=== PATIENT | female | born 1980 | race Caucasian/White ===

== ENCOUNTER 2017-09-30 17:47 | Emergency (ER) | payer SELFPAY ==
[~2017-09-30] VITALS: Ht 162.6 cm; Wt 69.4 kg
[2017-09-30 17:55] VITALS: BP_SYST 135
[2017-09-30] MEDS ORDERED: ONDANSETRON 4 MG ODT TAB PO ONE (18:15)
[2017-09-30] MEDS ORDERED: ACETAMINOPHEN 500 MG TABLET PO ONE (18:15)
[2017-09-30] MEDS ORDERED: MORPHINE SULFATE 10 MG/ML VIAL IM ONE (19:15)
[2017-09-30] MEDS ORDERED: CYCLOBENZAPRINE HCL 10 MG TABLET (FLEXERIL) PO ONE (20:00)
[2017-09-30 20:10] VITALS: BP_SYST 110
== END 2017-09-30 20:10 | disposition home or self-care (01) ==
LOC: SED 17:47
DX: S16.1XXA Strain of muscle, fascia and tendon at neck level, initial encounter (principal); S39.012A Strain of muscle, fascia and tendon of lower back, initial encounter; F17.210 Nicotine dependence, cigarettes, uncomplicated; Z71.6 Tobacco abuse counseling; Z88.0 Allergy status to penicillin; W18.30XA Fall on same level, unspecified, initial encounter; Y93.01 Activity, walking, marching and hiking; Y92.511 Restaurant or cafe as the place of occurrence of the external cause; Y99.8 Other external cause status
CPT/HCPCS: 70450; 72125; 72132; 96372; 99284; J2270; Q0162